=== PATIENT | male | born 1945 | race African-American/Black ===

== ENCOUNTER 2016-04-28 10:18 | Emergency (ER) | payer MEDICARE, BC ==
[~2016-04-28] VITALS: Ht 177.8 cm; Wt 109.0 kg
[2016-04-28] MEDS ORDERED: LISI10TA7 PO (10:45)
[2016-04-28] MEDS ORDERED: CARV25TA32 PO (10:45)
[2016-04-28] MEDS ORDERED: PRAS10TA6 PO (10:45)
[2016-04-28] MEDS ORDERED: LEVO50TA11 PO (10:45)
[2016-04-28] MEDS ORDERED: INSU10VI2 SQ (10:45)
[2016-04-28] MEDS ORDERED: SUCR500T PO (10:45)
[2016-04-28] MEDS ORDERED: B CO1CAP6 PO (10:45)
[2016-04-28] MEDS ORDERED: ROSU20TA28 PO (10:45)
[2016-04-28] MEDS ORDERED: CALC667C PO (10:45)
[2016-04-28] MEDS ORDERED: CINA60TA PO (10:45)
[2016-04-28] MEDS ORDERED: INSLAN SQ (10:45)
[2016-04-28 12:34] VITALS: BP 182/92
== END 2016-04-28 12:38 | disposition home or self-care (01) ==
LOC: EMS 10:22
DX: E11.22 Type 2 diabetes mellitus with diabetic chronic kidney disease (principal); I12.0 Hypertensive chronic kidney disease with stage 5 chronic kidney disease or end stage renal disease; Z99.2 Dependence on renal dialysis; Z79.4 Long term (current) use of insulin
CPT/HCPCS: 82962; 99281